=== PATIENT | female | born 1980 | race Caucasian/White ===

== ENCOUNTER 2024-06-15 16:13 | Emergency (ER) | payer SELFPAY ==
[~2024-06-15] VITALS: Ht 160 cm; Wt 65.6 kg
[2024-06-15] MEDS ORDERED: IBLOOD GLUCOSE TEST STRIP 1 EA TEST XX ONE (16:30)
[2024-06-15 18:01] LABS: INR 0.95 (0.80-1.30)
[2024-06-15 18:09] LABS: ALBUMIN 3.8 g/dL (3.4-5.0); ALBUMIN/GLOBULIN RATIO 1.19 (1.1-2.4); ANION GAP 13.3 (7-21); BILIRUBIN, TOTAL 0.2 ng/dL (0.2-1.0); BUN/CREATININE RATIO 13.13 (6.0-28.6); CALCIUM 8.7 mg/dL (8.5-10.1); CREATININE, SERUM 0.99 mg/dL (0.55-1.02); POTASSIUM 3.3 mmol/L (3.5-5.1)
[2024-06-15 18:24] LABS: AMPHETAMINES, URINE POSITIVE (NEGATIVE); BARBITURATES, URINE NEGATIVE (NEGATIVE); BENZODIAZEPINE, URINE NEGATIVE (NEGATIVE); BUPRENORPHINE, URINE NEGATIVE (NEGATIVE); CANNABINOID, URINE POSITIVE (NEGATIVE); COCAINE, URINE NEGATIVE (NEGATIVE); ECSTASY, URINE POSITIVE (NEGATIVE); FENTANYL, URINE NEGATIVE (NEGATIVE); METHADONE, URINE NEGATIVE (NEGATIVE); OPIATES, URINE NEGATIVE (NEGATIVE); OXYCODONE, URINE NEGATIVE (NEGATIVE); PHENCYCLIDINE, URINE NEGATIVE (NEGATIVE)
[2024-06-15 18:48] LABS: BASOPHILS 0.4 % (0-2); EOSINOPHILS 0.6 % (0-6); HEMOGLOBIN 11.6 g/dL (12.0-18.0); LYMPHOCYTES 9.1 % (24-44); MCH 26.6 (27-36); MCHC 33.1 g/dl (30-36); MCV 80.4 fl (81-99); MONOCYTES 6.9 % (0-12); PLATELET COUNT 267 K/uL (140-440); RBC 4.35 M/ul (4.3-5.7); RDW 17.4 (10.5-15.0)
[2024-06-15 19:25] VITALS: BP 137/90
--- NOTE | 2024-06-15 22:37 | EKG ---
[facility] [address] [facility] [place] [address] S[address] Sinus [address] abnormality Abnormal ECG No previous ECGs available Confirmed by Keke Solano MD () on 06/15/2024 10:37:39 PM Electronically Signed By: KEKE SOLANO MD 06/15/242236 PATIENT NAME: BELINDA CADE Electrocardiogram DATE OF : 76 PHYSICIAN: KEKE SOLANO MD REPORT #: [id number] REPORT IS CONFIDENTIAL AND NOT TO BE RELEASED WITHOUT AUTHORIZATION
== END 2024-06-15 19:27 | disposition home or self-care (01) ==
LOC: ED 16:13
PROVIDERS: Emergency Medicine
DX: F15.129 Other stimulant abuse with intoxication, unspecified (principal); F12.929 Cannabis use, unspecified with intoxication, unspecified
CPT/HCPCS: 36415; 70450; 70496; 70498; 71045; 80053; 80307; 84484; 85025; 85610; 93005; 93010